=== PATIENT | female | born 1990 | race Two or more races ===

== ENCOUNTER 2021-11-26 19:31 | Outpatient (CLI) | payer OTHER ==
[~2021-11-26] VITALS: Ht 167.6 cm; Wt 81.6 kg
[2021-11-27] MEDS ORDERED: CEPHALEXIN500 MG PO (11:57)
== END 2021-11-27 12:07 | disposition home or self-care (01) ==
LOC: OBS/DEL 19:31
PROVIDERS: ATTEND Obstetrics & Gynecology
DX: O47.1 False labor at or after 37 completed weeks of gestation (principal); Z3A.37 37 weeks gestation of pregnancy; N39.0 Urinary tract infection, site not specified

== ENCOUNTER 2021-12-08 07:30 | Inpatient (IN) | payer OTHER ==
[~2021-12-08] VITALS: Ht 167.6 cm; Wt 83.5 kg
[~2021-12-08 07:30] MED LIST: CEPHALEXIN500 MG PO
[2021-12-09] MEDS ORDERED: PRENATAL CAPLE1 EAC1 (20:04)
== END 2021-12-11 14:24 | disposition home or self-care (01) | DRG 768 ==
LOC: LDR 12-09 19:31 → OB/GYN 12-10 04:06
PROVIDERS: ADMIT Obstetrics & Gynecology; ATTEND Obstetrics & Gynecology
PROC: 4A1HXCZ Monitoring of Products of Conception, Cardiac Rate, External Approach (ICD-10-PCS; 2021-12-09)
PROC: 10E0XZZ Delivery of Products of Conception, External Approach (ICD-10-PCS; principal; 2021-12-10)
PROC: 0DQR0ZZ Repair Anal Sphincter, Open Approach (ICD-10-PCS; 2021-12-10)
PROC: 0W8NXZZ Division of Female Perineum, External Approach (ICD-10-PCS; 2021-12-10)
DX: O70.21 Third degree perineal laceration during delivery, IIIa (principal); Z37.0 Single live birth; Z3A.38 38 weeks gestation of pregnancy; Z20.822 Contact with and (suspected) exposure to COVID-19